=== PATIENT | male | born 1985 | race Caucasian/White ===

== ENCOUNTER 2025-04-25 13:57 | Emergency (ER) | payer SELFPAY ==
[2025-04-25 13:58] VITALS: BP 175/97; PULSE 72; RESP 16; TEMP 37.1; O2SAT 97; BMI 21.2
[2025-04-25 14:28] LABS: UR Morphine/Opiate cutoff 300 Negative (Negative); Ur Creatinine Normal (Normal); Ur Specific Gravity Normal (Normal); Urine Amphetamines Negative (Negative); Urine Barbiturates Negative (Negative); Urine Benzodiazepines Negative (Negative); Urine Cocaine Negative (Negative); Urine MDMA Negative (Negative); Urine Methadone Negative (Negative); Urine Methamphetamines Negative (Negative); Urine Oxycodone Negative (Negative); Urine Phencyclidine Negative (Negative); Urine Tetrahydrocannabinol Positive (Negative); Urine Tricyclic Antidepressant Negative (Negative); Urine pH Normal (Normal)
[2025-04-25 14:40] LABS: Add Manual Diff / Slide Review NO; Basophils Absolute Auto 0 /uL (0-100); Basophils Percent Auto 0.6 % (0-2); Eosinophils Absolute Auto 100 /uL (0-450); Eosinophils Percent Auto 1.2 % (2-4); Hematocrit 44.3 % (41-53); Hemoglobin 15.6 g/dL (13.5-17.5); Lymphocytes Absolute Auto 2500 /uL (1100-4500); Lymphocytes Percent Auto 32.8 % (25-40); Mean Corpuscular HGB Conc 35.2 % (30-36); Mean Corpuscular Volume 99.5 fL (80-100); Monocytes Absolute Auto 500 /uL (0-900); Monocytes Percent Auto 6.3 % (3-14); Neutrophils Absolute Auto 4500 /uL (1500-7000); Neutrophils Percent Auto 59.1 % (50-75); Platelet Count 288 X10^3/uL (150-400); Red Blood Cell Count 4.45 X10^6/uL (4.5-5.9); Red Cell Distribution Width 13.2 % (11.6-14.8); White Blood Cell Count 7.7 X10^3/uL (4.5-11.0)
[2025-04-25 15:05] LABS: Acetaminophen < 10 ug/mL (10-30); Alanine Aminotransferase 29 IU/L (<50); Albumin 4.4 g/dL (3.5-5.0); Albumin Globulin Ratio 1.5 (1.0-2.8); Alkaline Phosphatase 42 U/L (38-126); Aspartate Aminotransferase 35 IU/L (17-59); BUN Creatinine Ratio 19.7 (6-22); Bilirubin Total 0.6 mg/dL (0.2-1.3); Blood Urea Nitrogen 13 mg/dL (9-20); Calcium 8.8 mg/dL (8.4-10.2); Carbon Dioxide 25 mmol/L (22-32); Chloride 102 mmol/L (98-107); Estimated Glomerular Filt Rate > 60 mL/min (>60); Ethanol (ETOH) < 10 mg/dL (<10); Glucose 120 mg/dL (70-99); HEMOLYSIS < 15 (0-50); Potassium 3.1 mmol/L (3.4-5.1); Salicylate < 1.0 mg/dL (<20); Sodium 138 mmol/L (137-145); Total Protein 7.4 g/dL (6.3-8.2)
[2025-04-25 15:26] LABS: TSH w/ Reflex to FT4 0.37 uIU/mL (0.47-4.68)
[2025-04-25 16:00] LABS: Free T4, Direct Thyroxine 1.25 ng/dL (0.78-2.19)
--- NOTE | 2025-04-25 17:57 | ED.PSYCH ---
HPI - Psych General Chief Complaint: Psychiatric Symptoms Stated Complaint: mental health crisis Time Seen by Provider: 04/25/25 17:57 Source: patient, RN notes reviewed and old records reviewed Mode of arrival: EMS Limitations: no limitations History of Present Illness HPI Narrative: 39-year-old male with known psychiatric history has had to change twice before presents with a concern for mental health crisis. Patient states he does not feel like his symptoms are that bad. He was brought by EMS after being found standing and a fairly busy street just sort of staring. Patient states he does not want to harm himself he does not have any thoughts of harming others. He was conversant little bit slow to respond. He states he has been on medication in the past but it was not currently. Sounds like he was had some counseling in the past but it was not currently seeing any sort of psychiatrist or counselor. States he does not use tobacco, no alcohol, states that he uses marijuana denies any other recreational drugs. States he was not really interested in taking any daily medications. Related Data Allergies Allergy/AdvReac Type Severity Reaction Status Date / Time No Known Drug Allergies Allergy Verified 04/25/25 14:11 Review of Systems Review of Systems ROS Unobtainable: All systems reviewed & are unremarkable except as noted in HPI and below Exam Narrative Exam Narrative: GENERAL: Alert and oriented, male with flat affect HEENT: Head normocephalic, atraumatic, EOMI, pupils reactive, face symmetric, moist mucous membranes NECK: Supple, full range of motion CARDIOVASCULAR: Regular rate and rhythm without murmurs, rubs or gallops. RESPIRATORY: Breath sounds equal bilaterally, no wheezes rales or rhonchi. ABDOMEN: Soft, nontender. Normoactive bowel sounds all 4 quadrants. No guarding or rebound, rigidity, no mass EXTREMITIES: Normal range of motion, no clubbing or edema. Neurovascularly intact NEUROLOGICAL: Cranial nerves II through XII grossly intact. Moving all extremities SKIN: Warm, dry, no petechiae, no rashes or lesions. PSYCH: No SI, no active HI, denies paranoia, patient is judgment and insight seem poor. Initial Vital Signs Initial Vital Signs: Vital Signs Temperature 98.7 F 04/25/25 13:58 Pulse Rate 72 04/25/25 13:58 Respiratory Rate 16 04/25/25 13:58 Blood Pressure 175/97 H 04/25/25 13:58 Pulse Oximetry 97 04/25/25 13:58 Oxygen Delivery Method Room Air 04/25/25 13:58 Course Orders Ordered: ED Orders 04/25/25 14:12 Urine Drug Screen, Rapid Stat 04/25/25 14:18 Consult to PRODUCTION GRAPHIC DESIGNER - Internet Systems Administrator Routine 04/25/25 14:30 Acetaminophen Stat Complete Blood Count AUTO DIFF Stat Comprehensive Metabolic Panel Stat Ethanol (ETOH) Stat Free T4, Direct Thyroxine Stat Salicylate Stat TSH w/ Reflex to FT4 Stat Discontinued Medications Nicotine (Nicotine 21 Mg Patch) 21 mg TOP NOW ONE Stop: 04/25/25 18:05 Potassium Chloride (Potassium Chloride 20 Meq Tab) 40 meq PO NOW ONE Stop: 04/25/25 17:59 Vital Signs Vital signs: Vital Signs - 8 hr 04/25/25 13:58 Temperature 98.7 F Pulse Rate 72 Respiratory Rate 16 Blood Pressure 175/97 H Pulse Oximetry 97 Oxygen Delivery Method Room Air MDM - Psych Lab Data 04/25/25 14:30 04/25/25 14:30 Labs: Lab Results 04/25/25 04/25/25 Range/Units 14:12 14:30 WBC 7.7 (4.5-11.0) X10^3/uL RBC 4.45 L (4.5-5.9) X10^6/uL Hgb 15.6 (13.5-17.5) g/dL Hct 44.3 (41-53) % MCV 99.5 (80-100) fL MCH 35.0 H (26-34) PG MCHC 35.2 (30-36) % RDW 13.2 (11.6-14.8) % Plt Count 288 (150-400) X10^3/uL Neut % (Auto) 59.1 (50-75) % Lymph % (Auto) 32.8 (25-40) % [place] % (Auto) 6.3 (3-14) % Eos % (Auto) 1.2 L (2-4) % Baso % (Auto) 0.6 (0-2) % Neut # (Auto) 4500 (4894-7771) /uL Lymph # (Auto) 2500 (7610-1366) /uL [place] # (Auto) 500 (0-900) /uL Eos # (Auto) 100 (0-450) /uL Baso # (Auto) 0 (0-100) /uL Sodium 138 (137-145) mmol/L Potassium 3.1 L (3.4-5.1) mmol/L Chloride 102 (98-107) mmol/L Carbon Dioxide 25 (22-32) mmol/L BUN 13 (9-20) mg/dL Creatinine 0.66 (0.66-1.25) mg/dL Estimated GFR > 60 (>60) mL/min BUN/Creatinine Ratio 19.7 (6-22) Glucose 120 H (70-99) mg/dL Calcium 8.8 (8.4-10.2) mg/dL Total Bilirubin 0.6 (0.2-1.3) mg/dL AST 35 (17-59) IU/L ALT 29 (<50) IU/L Alkaline Phosphatase 42 (38-126) U/L Total Protein 7.4 (6.3-8.2) g/dL Albumin 4.4 (3.5-5.0) g/dL Globulin 3.0 (1.7-4.1) g/dL Albumin/Globulin Ratio 1.5 (1.0-2.8) TSH 0.37 L (0.47-4.68) uIU/mL Free T4 1.25 (0.78-2.19) ng/dL Salicylates < 1.0 (<20) mg/dL U Opiates 300ng/mL cut Negative (Negative) Ur Oxycodone Screen Negative (Negative) Urine Methadone Screen Negative (Negative) Acetaminophen < 10 (10-30) ug/mL Ur Barbiturates Screen Negative (Negative) U Tricyclic Antidepress Negative (Negative) Ur Phencyclidine Scrn Negative (Negative) Ur Amphetamines Screen Negative (Negative) U Methamphetamines Scrn Negative (Negative) Ur MDMA Scrn (Ecstasy) Negative (Negative) U Benzodiazepines Scrn Negative (Negative) Urine Cocaine Screen Negative (Negative) U Marijuana (THC) Screen Positive H (Negative) Urine pH Normal (Normal) Urine Specific [place] Normal (Normal) Ethyl Alcohol < 10 (<10) mg/dL Ur Creatinine Normal (Normal) Urine Dip Bedside Urine Glucose Negative Bedside Urine Bilirubin - Negative Bedside Urine Ketone - Negative Urine Specific [place] 1.015 Bedside Urine Occult Blood - Negative Bedside Urine pH 6.5 Bedside Urine Protein - Negative Bedside Urine Urobilinogen - Negative Bedside Urine Nitrite - Negative Bedside Urine Leukocytes - Negative Esterase MDM Narrative Medical decision making narrative: Labs show normal white count hemoglobin and platelets, potassium slightly low at 3.1 otherwise normal electrolytes BUN creatinine glucose is 120 LFTs are negative TSH is 0.37 free T4 is 1.25. Tylenol, salicylate and ETOH are negative. UDS is negative except for marijuana. Patient had oral dose of potassium here in the department. He has been medically cleared. Patient does not have active SI or HI, was found at a busy street standing and staring in the [place] of traffic and not moving to safety. He has been cooperative here in the department, he is alert appropriate difficult to say if he was gravely disabled. Call out to DCR to have their input. Patient eloped from the department. Discharge Plan Departure Patient Disposition: Elopement Clinical Impression: Hx of bipolar disorder
--- NOTE | 2025-04-25 18:18 | PC.NURSE ---
Pt ambulated from department with steady gait, CUTTER GRIND TOOL TECHNICIAN attempted to talk with pt about eloping and attempted to have pt return to ED, pt declined. Pt left department and declined further care. Provider aware
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
== END 2025-04-25 18:21 | disposition left against medical advice (07) ==
PROVIDERS: Emergency Provider Emergency Medicine
DX: F69 Unspecified disorder of adult personality and behavior (principal); Z86.59 Personal history of other mental and behavioral disorders
CPT/HCPCS: 36415; 80053; 80305; 80320; 80329; 81003; 84439; 84443; 85025; 99283; G0480

== ENCOUNTER 2025-04-25 22:39 | Emergency (ER) | payer SELFPAY ==
[2025-04-25 23:00] VITALS: BP 163/110; PULSE 94; RESP 18; TEMP 36.4; O2SAT 98; BMI 21.9
[2025-04-25 23:50] LABS: Add Manual Diff / Slide Review NO; Basophils Absolute Auto 100 /uL (0-100); Basophils Percent Auto 0.6 % (0-2); Eosinophils Absolute Auto 100 /uL (0-450); Eosinophils Percent Auto 0.8 % (2-4); Hematocrit 42.6 % (41-53); Hemoglobin 15.1 g/dL (13.5-17.5); Lymphocytes Absolute Auto 1800 /uL (1100-4500); Lymphocytes Percent Auto 16.7 % (25-40); Mean Corpuscular HGB Conc 35.4 % (30-36); Mean Corpuscular Hemoglobin 35.1 PG (26-34); Monocytes Absolute Auto 700 /uL (0-900); Monocytes Percent Auto 6.5 % (3-14); Neutrophils Absolute Auto 8100 /uL (1500-7000); Neutrophils Percent Auto 75.4 % (50-75); Platelet Count 282 X10^3/uL (150-400); Red Cell Distribution Width 13.4 % (11.6-14.8); White Blood Cell Count 10.7 X10^3/uL (4.5-11.0)
--- NOTE | 2025-04-26 00:36 | PC.NURSE ---
Pt had gone to the bathroom, then asked for water, when bringing pt water he ignored everyone and walked out the ambulance bay door. dispatch called and informed of patients elopement.
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
[2025-04-26] MEDS: LORazepam 0.5 MG TABLET 2 MG PO (00:53)
[2025-04-26 01:03] LABS: Acetaminophen < 10 ug/mL (10-30); Alanine Aminotransferase 29 IU/L (<50); Albumin 4.3 g/dL (3.5-5.0); Albumin Globulin Ratio 1.5 (1.0-2.8); Alkaline Phosphatase 49 U/L (38-126); Aspartate Aminotransferase 35 IU/L (17-59); BUN Creatinine Ratio 27.8 (6-22); Bilirubin Total 0.5 mg/dL (0.2-1.3); Blood Urea Nitrogen 20 mg/dL (9-20); Calcium 9.2 mg/dL (8.4-10.2); Carbon Dioxide 29 mmol/L (22-32); Chloride 101 mmol/L (98-107); Estimated Glomerular Filt Rate > 60 mL/min (>60); Ethanol (ETOH) < 10 mg/dL (<10); Globulin 2.9 g/dL (1.7-4.1); Glucose 96 mg/dL (70-99); HEMOLYSIS < 15 (0-50); Potassium 3.6 mmol/L (3.4-5.1); Salicylate < 1.0 mg/dL (<20); Sodium 140 mmol/L (137-145); Total Protein 7.2 g/dL (6.3-8.2)
[2025-04-26 01:33] LABS: TSH w/ Reflex to FT4 0.88 uIU/mL (0.47-4.68)
[2025-04-26 04:40] LABS: Lithium < 0.2 mmol/L (0.6-1.2)
[2025-04-26 06:06] LABS: COVID19 -Nasal RAPID Negative (Negative)
--- NOTE | 2025-04-26 07:33 | PC.NURSE ---
Pt laying on stomach resting on stretcher, RA, breathing even/equal/unlabored at this time. Sitter at bedside due to high elopement risk of pt. DCR at bedside evaluating pt.
[2025-04-26 07:52] VITALS: BP 128/89; PULSE 107; RESP 16; TEMP 36.6; O2SAT 99
--- NOTE | 2025-04-26 09:00 | PC.NURSE ---
Started sitting for patient at 0900.
--- NOTE | 2025-04-26 10:25 | PC.NURSE ---
Report to Nandini TELLEZ at [facility].
--- NOTE | 2025-04-26 12:01 | PC.NURSE ---
Pt resting on stretcher, has DCR papers after being served. RA, NAD, breathing even/equal/unlabored at this time. Sitter at bedside due to high risk of pt elopement.n Lunch order give to pt
[2025-04-26 12:50] VITALS: BP 142/91; PULSE 95; RESP 18; TEMP 36.8
== END 2025-04-26 13:04 ==
PROVIDERS: Emergency Medicine; Emergency Provider Emergency Medicine
DX: F29 Unspecified psychosis not due to a substance or known physiological condition (principal); Z11.52 Encounter for screening for COVID-19
CPT/HCPCS: 36415; 80053; 80178; 80320; 80329; 84443; 85025; 87635; 99283; 99284; G0480